=== PATIENT | male | born 1965 | race Caucasian/White ===

== ENCOUNTER 2018-07-08 19:04 | Emergency (ER) | payer OTHER ==
--- NOTE | 2018-07-08 19:27 | Emergency Department Report ---
Blank Doc - Documentation Documentation: This is a 53-year-old male that presents with acute on chronic right sided neck pain with radiation to right arm. Denies any trauma. This initial assessment/diagnostic orders/clinical plan/treatment(s) is/are subject to change based on patient's health status, clinical progression and re- assessment by fellow clinical providers in the ED. Further treatment and workup at subsequent clinical providers discretion. Patient/guardians urged not to elope from the ED as their condition may be serious if not clinically assessed and managed. Initial orders include: 1- Patient sent to [facility] for further evaluation and treatment 2- xray
[2018-07-08 19:31] VITALS: BP 112/78
--- NOTE | 2018-07-08 20:33 | XRay Report ---
PROCEDURE: XR SPINE CERVICAL 2-3V HISTORY: neck pain FINDINGS: AP, lateral and open-mouth views of the cervical spine were acquired and demonstrate no fra cture of the cervical spine. There is loss of intervertebral disc space height and endplate remodelin g at C6-C7. The prevertebral soft tissues are within normal limits. IMPRESSION: No fracture is seen in the cervical spine This document is electronically signed by Awais Mohamud MD., July 08 2018 08:31:49 PM ET
[2018-07-08] MEDS ORDERED: DECADRON IM ONE (23:47)
[2018-07-08] MEDS ORDERED: TORADOL IM ONE (23:48)
[2018-07-08] MEDS ORDERED: FLEXERIL PO ONE (23:48)
--- NOTE | 2018-07-08 23:51 | Emergency Department Report ---
ED Neck Pain/Injury HPI - General Chief Complaint: Neck Pain/Injury Stated Complaint: BACK/NECK PAIN Time Seen by Provider: 07/08/18 19:26 Mode of arrival: Ambulatory Limitations: No Limitations - History of Present Illness Initial Comments: Patient is a 53-year-old male with history of hypertension diabetes type 2 arthritis and diabetic neuralgia left lateral neck pain radiating into left arm described as burning tingling is no weakness no paralysis no neuro deficits range of motion is intact patient denies fall or injury or trauma history this is a recurrent problem for this patient however he is out of NSAIDs and is unable to see his PCP. MD Complaint: neck pain Onset/Timin -: week(s), unknown Place: home Radiation: left lateral Severity: moderate Severity scale (0 -10): 5 Quality: burning, aching Consistency: constant Improves With: none Worsens With: movement of extremity, movement of neck Treatments Prior to Arrival: none - Related Data Previous Rx's Medication Instructions Recorded Last Taken Type Acetaminophen [Tylenol Extra 1,000 mg PO QID PRN #60 tablet 07/09/18 Unknown Rx Strength] Cyclobenzaprine [Flexeril] 10 mg PO TID PRN #30 tablet 07/09/18 Unknown Rx Diclofenac Sodium [Voltaren] 1 applicatio TP QID PRN #1 tube 07/09/18 Unknown Rx predniSONE [Deltasone] 40 mg PO DAILY 5 Days #10 tablet 07/09/18 Unknown Rx Allergies Allergy/AdvReac Type Severity Reaction Status Date / Time No Known Allergies Allergy Unverified 07/08/18 19:11 ED Review of Systems ROS: Stated complaint: BACK/NECK PAIN Other details as noted in HPI Constitutional: denies: chills, fever, malaise Eyes: denies: eye pain, eye discharge, vision change ENT: denies: ear pain, throat pain, congestion Respiratory: denies: cough, shortness of breath, wheezing Cardiovascular: denies: chest pain Endocrine: no symptoms reported Gastrointestinal: denies: abdominal pain, nausea, diarrhea Genitourinary: denies: urgency, dysuria Musculoskeletal: myalgia (LEFT NECK AND SHOULDER) Skin: denies: rash, lesions Neurological: denies: headache, weakness, numbness, paresthesias, confusion, abnormal gait, vertigo Psychiatric: anxiety. denies: depression Hematological/Lymphatic: denies: easy bleeding, easy bruising ED Past Medical Hx - Past Medical History Previous Medical History?: Yes Hx Hypertension: Yes Hx Diabetes: Yes - Surgical History Past Surgical History?: No - Social History Smoking Status: Never Smoker Substance Use Type: None - Medications Home Medications: Home Medications Medication Instructions Recorded Confirmed Last Taken Type Acetaminophen [Tylenol Extra 1,000 mg PO QID PRN #60 tablet 07/09/18 Unknown Rx Strength] Cyclobenzaprine [Flexeril] 10 mg PO TID PRN #30 tablet 07/09/18 Unknown Rx Diclofenac Sodium [Voltaren] 1 applicatio TP QID PRN #1 tube 07/09/18 Unknown Rx predniSONE [Deltasone] 40 mg PO DAILY 5 Days #10 tablet 07/09/18 Unknown Rx ED Physical Exam - General Limitations: No Limitations General appearance: alert, in no apparent distress - Head Head exam: Present: atraumatic, normocephalic, normal inspection - Eye Eye exam: Present: normal appearance, PERRL, EOMI Pupils: Present: normal accommodation - ENT ENT exam: Present: normal exam, normal orophraynx, mucous membranes moist, TM's normal bilaterally, normal external ear exam - Neck Neck exam: Present: normal inspection, tenderness (left lateral neck muscle pain with deep palpation, no posterior vertebral point tenderness rom intact to all peck without restriction there is no weakness ), full ROM. Absent: lymphadenopathy, thyromegaly - Respiratory Respiratory exam: Present: normal lung sounds bilaterally, chest wall tenderness. Absent: respiratory distress, wheezes, rhonchi - Cardiovascular Cardiovascular Exam: Present: regular rate, normal rhythm. Absent: systolic murmur, diastolic murmur, rubs, gallop - GI/Abdominal GI/Abdominal exam: Present: soft, normal bowel sounds - Rectal Rectal exam: Present: deferred - Extremities Exam Extremities exam: Present: normal inspection - Back Exam Back exam: Present: normal inspection, full ROM. Absent: tenderness, CVA tenderness (R), CVA tenderness (L), muscle spasm, paraspinal tenderness, rash noted - Neurological Exam Neurological exam: Present: alert, oriented X3, CN II-XII intact, normal gait, reflexes normal. Absent: motor sensory deficit - Psychiatric Psychiatric exam: Present: normal affect, normal mood - Skin Skin exam: Present: warm, dry, intact, normal color. Absent: rash ED Course Vital Signs 07/08/18 19:26 Temperature 97.9 F Pulse Rate 91 H Respiratory 20 Rate Blood Pressure 112/78 O2 Sat by Pulse 100 Oximetry ED Medical Decision Making - EKG Data EKG shows normal: sinus rhythm, axis, intervals, QRS complexes, ST-T waves Rate: normal - EKG Data Interpretation: normal EKG (EKG interp by ed attending NSR NO ST Elevation no ectopy ) - Radiology Data Radiology results: report reviewed, image reviewed Ordering Physician: LULU JORGE NP Date of Service: 07/08/18 Procedure(s): XR spine cervical 2-3V Accession Number(s): [id number] cc: LULU JORGE NP Fluoro Time In Minutes: PROCEDURE: XR SPINE CERVICAL 2-3V HISTORY: neck pain FINDINGS: AP, lateral and open-mouth views of the cervical spine were acquired and demonstrate no fracture of the cervical spine. There is loss of intervertebral disc space height and endplate remodeling at C6-C7. The prevertebral soft tissues are within normal limits. IMPRESSION: No fracture is seen in the cervical spine This document is electronically signed by Awais Mohamud MD., July 08 2018 08:31:49 PM ET Transcribed By: EDMOND Dictated By: AWAIS MOHAMUD MD Electronically Authenticated By: AWAIS MOHAMUD MD Signed Date/Time: 07/08/182032 DD/ 26 TD/TT: 07/08/182010 - Medical Decision Making Cervical spine x-rays demonstrate degenerative disc disease at C5, C6, & C7 there is no chest pain shortness of breath no nausea vomiting there is no weakness no paralysis shoulder drop is intact with pronation or supination is equal at 5/5 distal pulses are intact plus 2 bilat this is likely cervical radiculopathy versus diabetic radiculopathy plan nsaids , muscle relaxant follow up pcp in 2-3 days given referral to pcp will follow up in 2 days. Critical care attestation.: If time is entered above; I have spent that time in minutes in the direct care of this critically ill patient, excluding procedure time. ED Disposition Clinical Impression: DDD (degenerative disc disease), cervical Radiculopathy Qualifiers: Spinal region: cervical Qualified Code(s): M54.12 - Radiculopathy, cervical region Disposition: TO HOME OR SELFCARE Is pt being admited?: No Does the pt Need Aspirin: No Condition: Stable Instructions: Cervical Radiculopathy (ED), Degenerative Disc Disease (ED) Prescriptions: predniSONE [Deltasone] 40 mg PO DAILY 5 Days #10 tablet Cyclobenzaprine [Flexeril] 10 mg PO TID PRN #30 tablet PRN Reason: Muscle Spasm Acetaminophen [Tylenol Extra Strength] 1,000 mg PO QID PRN #60 tablet PRN Reason: Pain , Severe (7-10) Diclofenac Sodium [Voltaren] 1 applicatio TP QID PRN #1 tube PRN Reason: pain Referrals: KODY CHRISTIE MD [Staff Physician] - 3-5 Days Forms: Work/School Release Form(ED) Time of Disposition: 01:04
== END 2018-07-09 01:10 | disposition home or self-care (01) ==
LOC: ED 19:04
DX: M54.10 Radiculopathy, site unspecified (principal); M50.30 Other cervical disc degeneration, unspecified cervical region; I10 Essential (primary) hypertension; E11.9 Type 2 diabetes mellitus without complications
CPT/HCPCS: 72040; 93005; 93010; 96372; 99283; J1100; J1885

== ENCOUNTER 2018-07-24 19:21 | Emergency (ER) | payer OTHER ==
--- NOTE | 2018-07-24 19:58 | Emergency Department Report ---
Blank Doc - Documentation Documentation: 53 y/o male c/o back pain did not follow up. Last took pain medication yeste rday.
--- NOTE | 2018-07-24 23:07 | Emergency Department Report ---
ED General Adult HPI - General Chief complaint: Back Pain/Injury Stated complaint: LOWER BACK PAIN Time Seen by Provider: 07/24/18 21:51 Source: patient Mode of arrival: Ambulatory Limitations: No Limitations - History of Present Illness Initial comments: Pt is a 53 yo male who presents to the ED with c/o posterior neck pain and bilateral upper back pain that began a couple of weeks ago. The patient denies any injury, fall or trauma. The patient was seen in the ED on 07/08/18 and had an XR of the C-spine which showed degenerative disc disease. Pt was treated and given follow up with primary care doctor. The patient did not follow up. He denies any numbness, weakness, fall, injury, or trauma. Severity scale (0 -10): 10 - Related Data Previous Rx's Medication Instructions Recorded Last Taken Type Acetaminophen [Tylenol Extra 1,000 mg PO QID PRN #60 tablet 07/09/18 Unknown Rx Strength] Cyclobenzaprine [Flexeril] 10 mg PO TID PRN #30 tablet 07/09/18 Unknown Rx Diclofenac Sodium [Voltaren] 1 applicatio TP QID PRN #1 tube 07/09/18 Unknown Rx predniSONE [Deltasone] 40 mg PO DAILY 5 Days #10 tablet 07/09/18 Unknown Rx Allergies Allergy/AdvReac Type Severity Reaction Status Date / Time No Known Allergies Allergy Verified 07/24/18 20:28 ED Review of Systems ROS: Stated complaint: LOWER BACK PAIN Other details as noted in HPI Comment: All other systems reviewed and negative ED Past Medical Hx - Past Medical History Previous Medical History?: Yes Hx Hypertension: Yes Hx Diabetes: Yes - Surgical History Past Surgical History?: No - Social History Smoking Status: Never Smoker Substance Use Type: None - Medications Home Medications: Home Medications Medication Instructions Recorded Confirmed Last Taken Type Acetaminophen [Tylenol Extra 1,000 mg PO QID PRN #60 tablet 07/09/18 Unknown Rx Strength] Cyclobenzaprine [Flexeril] 10 mg PO TID PRN #30 tablet 07/09/18 Unknown Rx Diclofenac Sodium [Voltaren] 1 applicatio TP QID PRN #1 tube 07/09/18 Unknown Rx predniSONE [Deltasone] 40 mg PO DAILY 5 Days #10 tablet 07/09/18 Unknown Rx ED Physical Exam - General Limitations: No Limitations General appearance: alert, in no apparent distress - Head Head exam: Present: atraumatic, normocephalic - Eye Eye exam: Present: normal appearance - ENT ENT exam: Present: mucous membranes moist - Neck Neck exam: Present: normal inspection, full ROM. Absent: tenderness - Respiratory Respiratory exam: Present: normal lung sounds bilaterally. Absent: respiratory distress, wheezes, rales, rhonchi, stridor, chest wall tenderness, accessory muscle use, decreased breath sounds, prolonged expiratory - Cardiovascular Cardiovascular Exam: Present: regular rate, normal rhythm, normal heart sounds. Absent: systolic murmur, diastolic murmur, rubs, gallop - Back Exam Back exam: Present: normal inspection, full ROM. Absent: CVA tenderness (R), CVA tenderness (L), paraspinal tenderness, vertebral tenderness - Neurological Exam Neurological exam: Present: alert, oriented X3, CN II-XII intact, normal gait, other (normal finger to nose, normal heel to simons, 5/5 strength in the BUE/BLE, equal excelsior cutter strength, sensation intact, no focal neuro deficit). Absent: motor sensory deficit - Psychiatric Psychiatric exam: Present: normal affect, normal mood - Skin Skin exam: Present: warm, dry, intact ED Course Vital Signs 07/24/18 07/25/18 19:56 00:03 Temperature 98.4 F Pulse Rate 101 H 78 Respiratory 14 16 Rate Blood Pressure 95/64 Blood Pressure 105/73 [Left] O2 Sat by Pulse 100 99 Oximetry ED Medical Decision Making - Medical Decision Making Pt is a 53 yo male who presents to the ED with c/o posterior neck pain and bilateral upper back pain that began a couple of weeks ago. The patient denies any injury, fall or trauma. The patient was seen in the ED on 07/08/18 and had an XR of the C-spine which showed degenerative disc disease. Pt was treated and given follow up with primary care doctor. The patient did not follow up. He denies any numbness, weakness, fall, injury, or trauma. Pt has no neuro deficit on examination, no midline c-spine, t-spine, or l-spine tenderness. Will again give pt follow up with his PCP in the next 2-3 days. Will also refer pt to orthospine doctor for further evaluation and management. Advised to return to the ED for any new or worsening symptoms. Critical care attestation.: If time is entered above; I have spent that time in minutes in the direct care of this critically ill patient, excluding procedure time. ED Disposition Clinical Impression: Neck pain, Upper back pain Degenerative disc disease Qualifiers: Spinal region: mid-cervical Mid-cervical spinal level: C5-C6 Qualified Code(s): M50.322 - Other cervical disc degeneration at C5-C6 level Disposition: TO HOME OR SELFCARE Is pt being admited?: No Does the pt Need Aspirin: No Condition: Stable Instructions: Cervical Radiculopathy (ED), Degenerative Disc Disease (ED) Additional Instructions: Please follow up with your primary care doctor in the next 2-3 days. Please follow up with an orthospine doctor in the next 2-3 days. May continue to take the medication you were previously prescribed. Return to the emergency room for any new or worsening symptoms. [facility] Address: [address] [place] [id number] please follow up in the next 2-3 days Referrals: AJIT CHOI MD [Primary Care Provider] - 2-3 Days Time of Disposition: 23:08 Print Language: MAORI
[2018-07-25 00:03] VITALS: BP 105/73
== END 2018-07-25 00:03 | disposition home or self-care (01) ==
LOC: ED 19:21
DX: M50.322 Other cervical disc degeneration at C5-C6 level (principal); I10 Essential (primary) hypertension; E11.9 Type 2 diabetes mellitus without complications

== ENCOUNTER 2020-11-15 14:54 | Outpatient (CLI) | payer OTHER ==
--- NOTE | 2020-11-15 16:02 | XRay Report ---
RIGHT WRIST 3 VIEWS INDICATION: Right wrist pain. COMPARISON: None. IMPRESSION: No acute osseous or soft tissue abnormality. Minimal osteoarthritic changes are ident ified. Mild vascular calcifications. RIGHT HAND 3 VIEWS INDICATION: PAIN IN JOINTS OF LEFT HAND M25.542. COMPARISON: None. IMPRESSION: No acute osseous or soft tissue abnormality. No significant DJD. LEFT HAND 3 VIEWS INDICATION: PAIN IN JOINTS OF LEFT HAND M25.542. COMPARISON: None. IMPRESSION: No acute osseous or soft tissue abnormality. No significant DJD. Signer Name: Uri Casiano Jr, MD Signed: 11/15/2020 3:57 PM Workstation Name: [id number]
== END 2020-11-15 14:55 | disposition home or self-care (01) ==
LOC: SPVIMAG 14:54
PROVIDERS: ATTEND Internal Medicine
DX: M19.031 Primary osteoarthritis, right wrist (principal); M25.542 Pain in joints of left hand; M25.541 Pain in joints of right hand